=== PATIENT | male | born 1945 | race Caucasian/White ===

== ENCOUNTER 2016-08-22 05:18 | Day surgery (SDC) | payer OTHER ==
[~2016-08-22] VITALS: Ht 170.2 cm; Wt 125.0 kg
[~2016-08-22 05:18] MED LIST: CALCIUM CITRAT250 MG PO; CIPRO500 MG PO; DAILY VALUE1 EACH PO; ENDOCET 5-3251 EACH PO; FLOMAX0.4 MG PO; IMODIUM MS REL1 EACH PO; MS CONTIN,ORAMO15 M1 PO; NEURONTIN100 MG PO; NEURONTIN300 MG PO; OXYCONTIN10 MG PO; POTASSIUM CITR10 MEQ PO; ULTRAM50 MG PO; VITAMIN B-650 MG PO; VOLTAREN 1% GE100 GM TP; XALATAN2.5 ML BOTH EYES
[2016-08-22 05:47] VITALS: BP 126/58
[2016-08-22 06:15] LABS: MCH 32.8 PG (29.0-34.0); MCHC 33.3 G/DL (30.0-36.0); MCV 98.4 FL (86-99); MEAN PLAT.VOLUME 9.7 uM^3 (9.0-12.4); PLATELET COUNT 158 K/uL (156-360); RBC DIS.WIDTH-CV 14.4 % (11.8-14.6); RBC DIS.WIDTH-SD 51.8 % (39-53); RED BLOOD COUNT 3.05 M/uL (4.00-5.50); WHITE BLOOD COUNT 4.3 K/uL (4.1-10.2)
[2016-08-22 06:36] LABS: ANION GAP 6 MEQ/L (2-14); CHLORIDE 110 MEQ/L (99-109); POTASSIUM 4.1 MEQ/L (3.7-5.4); SAMPLE HEMOLYSIS CHECK 0; SAMPLE ICTERIC CHECK 0; SAMPLE LIPEMIA CHECK 0; SODIUM 137 MEQ/L (136-147); TOTAL BILIRUBIN 0.9 MG/DL (0.0-1.0)
[2016-08-22 06:41] LABS: ALKALINE PHOSPHATASE 126 IU/L (3-129); GFR ESTIMATE (CALCULATED) > 59 mL/min/; GLUCOSE 88 mg/dL (70-99); UREA NITROGEN (BUN) 16 mg/dL (9-23)
[2016-08-22 09:40] VITALS: BP 105/60
[2016-08-22 10:05] VITALS: BP 123/62
== END 2016-08-22 10:15 | disposition home or self-care (01) ==
LOC: SDC 05:18
PROVIDERS: Ophthalmology
DX: H35.372 Puckering of macula, left eye (principal); H35.342 Macular cyst, hole, or pseudohole, left eye; H33.22 Serous retinal detachment, left eye; F17.200 Nicotine dependence, unspecified, uncomplicated; M19.90 Unspecified osteoarthritis, unspecified site
CPT/HCPCS: 80053; 85027; J0690; J1100; J2250; J2795; J3010; J3300